=== PATIENT | female | born 1945 | race African-American/Black ===

== ENCOUNTER → 2017-01-06 | Day surgery (SDC) | payer MEDICARE, BC ==
[~2017-01-06] MED LIST: LACTATED RINGER'S 1000 ML INJ 1,000 ML ONE; LOSA50TA PO; MEDR4PAK PO; MELO7.5T4 PO; OXYB5TAB10 PO; PROPOFOL 500 MG/50 ML BTL IV ONE; SIMV20TA PO; VITA250T5 PO
--- NOTE | 2017-01-06 13:10 | GIPROC ---
[facility] [address] [facility], [address] EGD WITH DILATION PROCEDURE REPORT EXAM DATE: 01/06/2017 PATIENT NAME: Josy Sun MR#: [id number] BIRTHDATE: 1945 ATTENDING: Davina De Leon MD ORDER #: [id number] CASING IN LINE SETTER: Josephine Hopper CST and Amee Gracia STATUS: outpatient INDICATIONS: The patient is a 71 yr old female here for an EGD with dilation due to dysphagia reflux PROCEDURE PERFORMED: EGD w/ hot bx forceps/cautery EGD w/ dilation of esophagus via guidewire MEDICATIONS: None and Per Anesthesia. TOPICAL ANESTHETIC: none CONSENT: The patient understands the risks and benefits of the procedure and understands that these risks include, but are not limited to: sedation, allergic reaction, infection, perforation and/or bleeding. Alternative means of evaluation and treatment include, among others: physical exam, x-rays, and/or surgical intervention. The patient elects to proceed with this endoscopic procedure. medical equipment was checked for proper function. Hand hygiene and appropriate measures for infection prevention was taken. After the risks, benefits and alternatives of the procedure were thoroughly explained, Informed consent was verified, confirmed and timeout was successfully executed by the treatment team. The patient was anesthetized with topical anesthesia and the EC-3490Li ([id number]) endoscope was introduced through the mouth and advanced to the second portion of the duodenum. The instrument was slowly withdrawn as the mucosa was fully examined. Submucosal nodule second portion of duodenum-biopsy superficial ulcers in antrum-biopsy esophagitis/Schatzki's ring distal esophagus-biopsy. Dilation was performed at gastroesophageal junction. DILATOR: SIZE(S): RESISTANCE: HEME: APPEARANCE: Dilator: Savary over guidewire Size(s): 17 COMMENT: Retroflexed views revealed a hiatal hernia ADVERSE EVENTS: There were no complications. IMPRESSIONS: 1. Submucosal nodule second portion of duodenum-biopsy superficial ulcers in antrum-biopsy esophagitis/Schatzki's ring distal esophagus-biopsy 2. Retroflexed views revealed a hiatal hernia RECOMMENDATIONS: 1. Await biopsy results. Biopsy results will not be ready for 7-10 days. If you don't hear from us in two weeks, call our office for biopsy results. 2. Anti-reflux regimen 3. Continue PPI 4. Avoid NSAIDS 5. Dilatations PRN REPEAT EXAM: Return 6 months EGD Davina De Leon MD eSigned: Davina De Leon MD 01/06/2017 1:09 PM cc: Bel Richardson PATIENT NAME: Josy Sun MR#: [id number]
--- NOTE | 2017-01-06 13:13 | GIPROC ---
[facility] [address] [facility], [address] COLONOSCOPY PROCEDURE REPORT EXAM DATE: 01/06/2017 PATIENT NAME: Josy Sun MR #: [id number] BIRTHDATE: 1945 ENDOSCOPIST: Davina De Leon MD ORDER #: [id number] EXPLOSIVE ORDNANCE SPECIALIST: Josephine Hopper CST and Amee Gracia STATUS: outpatient INDICATIONS: The patient is a 71 yr old female here for a colonoscopy due to history of ulcerative colitis PROCEDURE PERFORMED: Colonoscopy with biopsy MEDICATIONS: None and Per Anesthesia. PREP QUALITY: good PREP TYPE:Other: ESTIMATED BLOOD LOSS: None CONSENT: The patient understands the risks and benefits of the procedure and understands that these risks include, but are not limited to: sedation, allergic reaction, infection, perforation and/or bleeding. Alternative means of evaluation and treatment include, among others: physical exam, x-rays, and/or surgical intervention. The patient elects to proceed with this endoscopic procedure. medical equipment was checked for proper function. Hand hygiene and appropriate measures for infection prevention was taken. After the risks, benefits and alternatives of the procedure were thoroughly explained, Informed consent was verified, confirmed and timeout was successfully executed by the treatment team. A digital exam revealed external hemorrhoids The EC-3490Li ([id number]) endoscope was introduced through the anus and advanced to the cecum, which was identified by both the appendix and ileocecal valve. The instrument was then slowly withdrawn as the colon was fully examined. COLON FINDINGS: Diverticulosis sigmoid,descending colitis involving sigmoid and rectum rest of colon normal-biopsies from cecum, ascending,descending, heaptic and splenic flexure, descending, sigmoiod and rectum. Retroflexed views revealed internal hemorrhoids and Retroflexed views revealed small internal hemorrhoids The scope was then completely withdrawn from the patient and the procedure terminated. PROCEDURE WITHDRAWAL TIME:6minutes ADVERSE EVENTS: There were no complications. IMPRESSIONS: 1. Diverticulosis sigmoid,descending colitis involving sigmoid and rectum rest of colon normal-biopsies from cecum, ascending,descending, heaptic and splenic flexure, descending, sigmoiod and rectum 2. Retroflexed views revealed internal hemorrhoids 3. Retroflexed views revealed small internal hemorrhoids 4. Revealed external hemorrhoids RECOMMENDATIONS: 1. Await biopsy results. Biopsy results will not be ready for 7-10 days. If you don't hear from us in two weeks, call our office for results. 2. Probiotics from any [employer] or health food store 3. Yearly rectal exams 4. Canasa supp pr [facility] RECALL: Return 1 year Colonoscopy Davina De Leon MD eSigned: Davina De Leon MD 01/06/2017 1:12 PM cc: Kati Claros [facility] PATIENT NAME: Josy Sun MR#: [id number]
== END | disposition home or self-care (01) ==
LOC: ESDC 09:38
PROVIDERS: ATTEND Internal Medicine Gastroenterology
DX: K51.90 Ulcerative colitis, unspecified, without complications (principal); K57.90 Diverticulosis of intestine, part unspecified, without perforation or abscess without bleeding; K64.4 Residual hemorrhoidal skin tags; K64.8 Other hemorrhoids; R13.10 Dysphagia, unspecified; K21.9 Gastro-esophageal reflux disease without esophagitis; K31.89 Other diseases of stomach and duodenum; K25.9 Gastric ulcer, unspecified as acute or chronic, without hemorrhage or perforation; K20.9 Esophagitis, unspecified; K22.2 Esophageal obstruction; K44.9 Diaphragmatic hernia without obstruction or gangrene
CPT/HCPCS: 00740; 00810; 43239; 43248; 45380; 88304; 88305; 88312; J3010; J7120